=== PATIENT | male | born 2000 | race Caucasian/White ===

== ENCOUNTER 2020-11-03 12:43 | Emergency (ER) | payer OTHER, SELFPAY ==
[2020-11-03 12:55] VITALS: BP 131/87; PULSE 96; RESP 20; TEMP 36.8; O2SAT 97; BMI 20.9
[2020-11-03 13:04] VITALS: BP 131/87; PULSE 96; RESP 20; TEMP 36.8; O2SAT 97
--- NOTE | 2020-11-03 13:20 | HMH.EDUTC ---
[facility] [place] Clinical Impression: Exposure to COVID-19 virus Disposition: Home, Self-Care Condition on Discharge: Good Instructions: DI for COVID-19 (Suspected or Confirmed ), Preventing the Spread of Coronavirus Discharge Instructions Additional Instructions: Drink plenty of fluids. Take tylenol for pain or fever. Return if you begin to have difficulty breathing. Follow up with your regular doctor. GO TO THE ER FOR ANY WORSENING SYMPTOMS Referrals: Yassine Treadwell [Primary Care Provider] - Time of Disposition: 13:21 Medical Decision Making - Medical Records Medical records reviewed: No: I reviewed the patient's medical records. - Kiran Inquiry Pt receiving controlled substance: No Vital Signs: 11/03/20 12:55 11/03/20 13:04 Temperature 98.2 F 98.2 F Temperature Source Oral Pulse Rate 96 H Pulse Rate [Right Brachial] 96 H Respiratory Rate 20 20 Blood Pressure 131/87 Blood Pressure [Right Arm] 131/87 Blood Pressure Mean [Right Arm] 101 Blood Pressure Source [Right Arm] Automatic Cuff Blood Pressure Position [Right Arm] Sitting 02 Sat by Pulse Oximetry 97 Oxygen Delivery Method Room Air Orders (Tests/Meds): ORDERS Category Date Time Status Covid-19 Nasal PCR ([facility]) Routine Lab 11/03/20 13:00 Received [facility] [place] HPI - General Stated complaint: covid exposure, runny nose, cough Time Seen by Provider: 11/03/20 13:20 Mode of Arrival: Ambulatory Source of Information: Patient Limitations: No Limitations Description of Symptoms (Recalled from Triage Doc. by RN): PATIENT REQUESTING COVID TEST D/T EXPOSURE; C/O DECREASED ENERGY, CONGESTION, AND LEFT SHOULDER PAIN HEENT Symptoms (Recalled from RN notes): No Resp Symptoms (Recalled from RN notes): No Skin Symptoms (Recalled from RN notes): No MS Symptoms (Recalled from RN notes): No Functional Status (Recalled from RN notes): WNL - History of Present Illness Provider Complaint: He states that for the past 2 days he has felt fatigued and he has had body aches. Several of the people that he lives with have covid right now. - Related Data Home Medications Medication Instructions Recorded Confirmed No Known Home Medications 08/13/19 08/13/19 Allergies Allergy/AdvReac Type Severity Reaction Status Date / Time No Known Allergies Allergy Unverified 10/14/17 15:06 - Worker's Comp Is this a Worker's Comp case?: No [facility] History - Hepatitis A Screen Drug use history?: No High risk sexual behaviors?: No History of sexually transmitted infection?: No Currently employed?: No Childcare worker?: No Do you have indoor plumbing?: Yes Do you have electricity?: Yes Attestation statement:: This patient has been screened for Hepatitis A risk factors. I have reviewed the patient's past medical history: Yes - Social History Smoking Status: Current every day smoker Tobacco Type: cigarettes # Packs/Day (cigarettes): 1 Alcohol Intake: never Occupational Status: other ROS Obtained: Yes All systems reviewed & no additional complaints - Constitutional Constitutional: Reports system reviewed and no additional complaints, except as docu - Eyes Eyes: Reports system reviewed and no additional complaints, except as docu - ENT Ears, Nose, Mouth, and Throat: Reports system reviewed and no additional complaints, except as docu - Cardiovascular Cardiovascular: Reports system reviewed and no additional complaints, except as docu - Respiratory Respiratory: Reports system reviewed and no additional complaints, except as docu - Gastrointestinal Gastrointestingal: Reports: system reviewed and no additional complaints, except as docu Physical Exam - General General appearance: alert, in no apparent distress - Head Head exam: atraumatic, normocephalic, normal inspection - Eye Eye exam: Present: normal appearance, PERRL, EOMI - ENT ENT exam: Present: normal exam, normal oropharynx, mucous membranes moist, TM's
--- NOTE | 2020-11-03 20:05 | PC.NURSE ---
ATTEMPTED TO CALL PT BUT MOTHER ANSWERED HIS PHONE AND SAID HE WAS NOT AVAILABLE SO I ASKED HER TO LEAVE HIM A MESSAGE TO CALL ME BACK AT HIS EARLIEST CONVENIENCE ABOUT COVID TEST RESULTS
--- NOTE | 2020-11-03 20:15 | PC.NURSE ---
PT CALLED BACK AND RECEIVED POSITIVE COVID RESULT
== END 2020-11-03 13:25 | disposition home or self-care (01) ==
PROVIDERS: Emergency Provider Nurse Practitioner Family; PCP Family Medicine
DX: U07.1 COVID-19 (principal); F17.210 Nicotine dependence, cigarettes, uncomplicated
CPT/HCPCS: 99202; G0463; U0003

== ENCOUNTER 2021-05-31 09:26 | Emergency (ER) | payer OTHER, SELFPAY ==
[2021-05-31 09:30] VITALS: BP 153/91; PULSE 81; RESP 18; TEMP 36.7; O2SAT 97; BMI 20.3
[2021-05-31 10:13] VITALS: BP 153/91; PULSE 81; RESP 18; TEMP 36.7; O2SAT 97
[2021-05-31 10:27] LABS: Microscopic, Urine URINE MICROSCOPIC (MICROSCOPIC)
[2021-05-31 10:29] LABS: Appearance,Urine CLEAR (Clear); Bilirubin,Urine 1+ (Negative); Blood, Urine Negative (Negative); Color,Urine YELLOW (Yellow); Glucose,Urine (UA) Negative (Negative); Ketones,Urine Negative (Negative); Leukocyte Esterase,Urine Negative (Negative); Nitrate,Urine Negative (Negative); Protein,Urine Negative (Negative); Urobilinogen,Urine 0.2 EU/dl (0.2)
[2021-05-31 10:43] LABS: Squamous Epithelial Cell,Urine Occasional #/hpf (0-5)
--- NOTE | 2021-05-31 10:43 | HMH.EDUTC ---
[facility] [place] Disposition Clinical Impression: Folliculitis, History of testicular lump, STD exposure Disposition: Home, Self-Care Condition on Discharge: Good Instructions: DI for Folliculitis Additional Instructions: Apply warm wet compresses to the affected sites three or four times per day for 15 minutes as tolerated. Take the antibiotics as directed. Follow up with your regular doctor. Follow up with urology regarding the lump in your scrotum. I put in a referral to Dr. Marsh. Please call him and schedule an appointment. Don't shave or trim your hair down there until this is well healed. Wait at least 1 to 2 months. GO TO THE ER FOR ANY WORSENING SYMPTOMS OR CONCERNS Prescriptions: Mupirocin [Bactroban 2% Ointment 22gm tube] 1 applicatio TP TID 7 Days #1 tube Transmission Status: Received by [id number] cephALEXin [cephALEXin 500mg capsule] 500 mg PO Q6H 10 Days #40 cap Transmission Status: Received by [id number] Referrals: Yassine Treadwell [Primary Care Provider] - Francisco Marsh MD [Staff Physician] - Time of Disposition: 11:06 Medical Decision Making - Medical Records Medical records reviewed: No: I reviewed the patient's medical records. - Kiran Inquiry Pt receiving controlled substance: No Vital Signs: 05/31/21 09:30 05/31/21 10:13 Temperature 98.0 F 98.0 F Temperature Source Oral Pulse Rate 81 Pulse Rate [Left Brachial] 81 Respiratory Rate 18 18 Blood Pressure 153/91 H Blood Pressure [Left Arm] 153/91 H Blood Pressure Mean [Left Arm] 111 Blood Pressure Source [Left Arm] Automatic Cuff Blood Pressure Position [Left Arm] Sitting 02 Sat by Pulse Oximetry 97 Oxygen Delivery Method Room Air - Lab Data Lab results reviewed: Yes: I reviewed the patient's lab results. Lab Results 05/31/21 09:50: Urine Color Yellow, Urine Appearance Clear, Urine pH 6.0, Ur Specific [place] 1.020, Urine Protein Negative, Urine Glucose (UA) Negative, Urine Ketones Negative, Urine Blood Negative, Urine Nitrate Negative, Urine Bilirubin 1+ A, Urine Urobilinogen 0.2, Ur Leukocyte Esterase Negative, Urine RBC None, Urine WBC 3-5, Ur Squamous Epith Cells Occasional, Urine Bacteria None Orders (Tests/Meds): ORDERS Category Date Time Status Urine Culture Stat Micro 05/31/21 09:50 Received [facility] [place] HPI - General Stated complaint: std check Time Seen by Provider: 05/31/21 10:43 Mode of Arrival: Ambulatory Source of Information: Patient Limitations: No Limitations Description of Symptoms (Recalled from Triage Doc. by RN): PATIENT REQUESTING STD TEST. NO KNOWN EXPOSURE. C/O PIMPLE ON PENIS AND A LUMP TO RIGHT TESTICLE HEENT Symptoms (Recalled from RN notes): No Resp Symptoms (Recalled from RN notes): No Skin Symptoms (Recalled from RN notes): No MS Symptoms (Recalled from RN notes): No Functional Status (Recalled from RN notes): WNL - History of Present Illness Provider Complaint: He has a place near his groin to the right of his penis that he describes as like a pimple that has been present for the past 4 to 5 days. He denies any fever/chills/dysuria. He also states that he has a lump in his scrotum that has been present for several years. He denies any tenderness or pain associated with this. He denies that the lump has changed any. - Related Data Previous Rx's Medication Instructions Recorded Mupirocin [Bactroban 2% Ointment 1 applicatio TP TID 7 Days #1 tube 05/31/21 22gm tube] cephALEXin [cephALEXin 500mg 500 mg PO Q6H 10 Days #40 cap 05/31/21 capsule] Allergies Allergy/AdvReac Type Severity Reaction Status Date / Time No Known Allergies Allergy Verified 05/31/21 10:06 - Worker's Comp Is this a Worker's Comp case?: No [facility] History - Hepatitis A Screen Drug use history?: No High risk sexual behaviors?: No History of sexually transmitted infection?: No Currently employed?: No Childcare worker?: No Do you have indoor pl
[2021-06-03 00:05] LABS: Neisseria gonorrhoeae, NAA Negative (Negative)
== END 2021-05-31 11:10 | disposition home or self-care (01) ==
PROVIDERS: Emergency Provider Nurse Practitioner Family; PCP Family Medicine
DX: L73.9 Follicular disorder, unspecified (principal); Z20.2 Contact with and (suspected) exposure to infections with a predominantly sexual mode of transmission; R22.2 Localized swelling, mass and lump, trunk; F17.210 Nicotine dependence, cigarettes, uncomplicated
CPT/HCPCS: 81001; 87086; 87491; 87591; 99202; G0463

== ENCOUNTER → 2021-08-17 17:38 | Outpatient (CLI) | payer OTHER, SELFPAY | PROVIDERS: Visit Provider Nurse Practitioner Family | DX: Z20.822 Contact with and (suspected) exposure to COVID-19 (principal); J02.9 Acute pharyngitis, unspecified | CPT/HCPCS: C9803; U0003; U0005 ==

== ENCOUNTER → 2021-12-05 15:19 | Outpatient (CLI) | payer MEDICAID, SELFPAY | PROVIDERS: Visit Provider Nurse Practitioner | DX: Z20.822 Contact with and (suspected) exposure to COVID-19 (principal) | CPT/HCPCS: C9803; U0003; U0005 ==

== ENCOUNTER 2022-01-14 15:31 | Emergency (ER) | payer MEDICAID, SELFPAY ==
[2022-01-14 16:14] VITALS: BP 0/0; PULSE 0; RESP 0; TEMP -17.7; TEMP 0; O2SAT 0
== END 2022-01-14 16:15 | disposition left against medical advice (07) ==
PROVIDERS: Emergency Provider Nurse Practitioner Family; PCP Family Medicine
DX: Z53.21 Procedure and treatment not carried out due to patient leaving prior to being seen by health care provider (principal)

== ENCOUNTER 2022-01-15 14:12 | Emergency (ER) | payer MEDICAID, SELFPAY ==
[2022-01-15 15:27] VITALS: BP 120/86; PULSE 86; RESP 18; TEMP 36.5; O2SAT 99; BMI 20.3
--- NOTE | 2022-01-15 15:32 | HMH.EDUTC ---
[facility] [place] Disposition Clinical Impression: Otitis media Qualifiers: Otitis media type: unspecified Laterality: right Qualified Code(s): H66.91 - Otitis media, unspecified, right ear Disposition: Home, Self-Care Condition on Discharge: Good Instructions: Middle Ear Infection, Amoxicillin, Methylprednisolone Additional Instructions: *Monitor Temp, Over the counter Motrin or Tylenol as directed/as needed Tylenol every 4 hours and Motrin every 6 hours (as long as your family doctor has told you that you can take it) for fever or pain. and straight to ER if unable to lower temp less than 101.0 after medication given *Warm salt water gargles may help to soothe the throat *Throat Lozenges *Warm fluids like tea with honey may help to soothe the throat *Sleep elevated *Humidifier/Vaporizer Take medication as prescribed Return if needed Follow up IMMEDIATELY for new or worsening symptoms or no Noticeable improvement over the next 48-72 hours. 911 for difficulty breathing or swallowing You were tested for today for COVID19 your test result should be back in the next 24-48 hours, you may check your results on the [facility] my Health Portal Make sure to take your Vitamins Vit. C Vit D and Zinc if you can take them Prescriptions: Amoxicillin [Amoxicillin 500mg Cap] 500 mg PO TID #30 cap Transmission Status: Pending to [facility] Brompheniramine/Pseudoephed/Dm [Bromfed Dm Cough Syrup] 5 - 10 ml PO Q4-6H PRN #200 ml PRN Reason: Cough Transmission Status: [facility] to [facility] methylPREDNISolone [Medrol 4mg tab] 4 mg PO DIRECTED #21 tab Transmission Status: P[facility] to [facility] Referrals: Yassine Treadwell [Primary Care Provider] - As needed Forms: Work/School Release Time of Disposition: 15:39 Medical Decision Making - Kiran Inquiry Pt receiving controlled substance: No Kiran was queried for this patient: No Vital Signs: 01/15/22 15:27 Temperature 97.7 F Temperature Source Oral Pulse Rate [Left] 86 Respiratory Rate 18 Blood Pressure [Right Arm] 120/86 Blood Pressure Mean [Right Arm] 97 02 Sat by Pulse Oximetry 99 Orders (Tests/Meds): ORDERS Category Date Time Status Covid-19 Nasal PCR ([facility]) Routine Lab 01/15/22 15:26 Received [facility] [place] HPI - General Stated complaint: covid test Time Seen by Provider: 01/15/22 15:33 Mode of Arrival: Ambulatory Source of Information: Patient Limitations: No Limitations Description of Symptoms (Recalled from Triage Doc. by RN): pt c/o chills, cough, body aches, sore throat, fever and congestion and sweats. ongoing x4 days. pt wants a covid test. HEENT Symptoms (Recalled from RN notes): Yes Resp Symptoms (Recalled from RN notes): Yes Skin Symptoms (Recalled from RN notes): No MS Symptoms (Recalled from RN notes): No Functional Status (Recalled from RN notes): wnl - History of Present Illness Provider Complaint: Patient states that he wanted to get a COVID test States that he works at [employer] and they dropped the masks State that he has been having chills, body aches cough, sore throat and ear pain for the last 4 days and he wanted to get a COVID test to be safe - Related Data Previous Rx's Medication Instructions Recorded amoxicillin 500 mg capsule 500 mg PO Q12H 10 Days #20 cap 08/17/21 Amoxicillin [Amoxicillin 500mg 500 mg PO TID #30 cap 01/15/22 Cap] Brompheniramine/Pseudoephed/Dm 5 - 10 ml PO Q4-6H PRN #200 ml 01/15/22 [Bromfed Dm Cough Syrup] methylPREDNISolone [Medrol 4mg 4 mg PO DIRECTED #21 tab 01/15/22 tab] Allergies Allergy/AdvReac Type Severity Reaction Status Date / Time No Known Allergies Allergy Verified 08/31/21 13:46 - Worker's Comp Is this a Worker's Comp case?: No [facility] History - Hepatitis A Screen Drug use history?: No High risk sexual behaviors?: No History of sexually transmitted infection?: No Currently employed?: No Childcare worker?: No Do you have indoor plum
[2022-01-15 16:03] VITALS: BP 120/86; PULSE 86; RESP 18; TEMP 36.5
== END 2022-01-15 16:04 | disposition home or self-care (01) ==
PROVIDERS: Emergency Provider Nurse Practitioner; PCP Family Medicine
DX: H66.91 Otitis media, unspecified, right ear (principal); J02.9 Acute pharyngitis, unspecified; F17.210 Nicotine dependence, cigarettes, uncomplicated
CPT/HCPCS: 99212; C9803; G0463; U0003; U0005

== ENCOUNTER 2022-02-27 02:01 | Emergency (ER) | payer OTHER, SELFPAY ==
[2022-02-27 02:02] VITALS: BP 129/84; PULSE 110; RESP 16; TEMP 37.4; O2SAT 97; BMI 23.0
--- NOTE | 2022-02-27 02:30 | HMH.EDGENADL ---
ED Disposition Clinical Impression: STD exposure Disposition: Home, Self-Care Condition on Discharge: Good Instructions: Facts About Sexually Transmitted Infections, How to Detect and Treat STDs Additional Instructions: You have been evaluated for STD exposure. Please complete doxycycline as prescribed. Follow-up with your primary care doctor. I would recommend an ultrasound of the scrotum and testicles to further evaluate the lump on the right. Return to the emergency department at once for any new or worsening symptoms. Prescriptions: Doxycycline Hyclate 100 mg PO BID #14 cap Transmission Status: Pending to [facility] Referrals: Yassine Treadwell [Primary Care Provider] - Francisco Marsh MD [Staff Physician] - Time of Disposition: :21 - Critical Care Critical Care Time: No Attestation: On 02/27/22, the high probability of a clinically significant, sudden or life threatening deterioration of the following system(s) required my full and direct attention, intervention and personal management. The time I documented below is in addition to time spent performing reported procedures but includes the following listed in this critical care notation. Medical Decision Making - Medical Records Medical records reviewed: Yes: I reviewed the patient's medical records. - Kiran Inquiry Pt receiving controlled substance: No Vital Signs: 02/27/22 02:02 Temperature 99.3 F Temperature Source Oral Pulse Rate [Left] 110 H Respiratory Rate 16 Blood Pressure [Right Arm] 129/84 Blood Pressure Mean [Right Arm] 99 02 Sat by Pulse Oximetry 97 Oxygen Delivery Method Room Air Orders (Tests/Meds): ED MEDICATIONS Generic Name Dose Route Start Last Admin Trade Name Freq PRN Reason Stop Dose Admin Ceftriaxone Sodium 500 mg 02/27/22 03:20 Ceftriaxone 500mg Vial IM 02/27/22 03:21 ONCE ONE Lidocaine HCl 0 ml 02/27/22 03:20 Lidocaine 1% 5ml Pf Vial IM 02/27/22 03:21 ONCE ONE Medical Decision Narrative: In summary this is a previously healthy 21-year-old male presenting to the emergency department after STD exposure. Patient clinically stable on arrival. Tachycardic. Other vital signs within normal limits. Physical exam is quite reassuring. Will obtain urine GC and chlamydia. Patient would like to be treated presumptively for GC and chlamydia exposure. Given 500 mg IM Rocephin in the emergency department. Given prescription for doxycycline. I do have concern for his small, palpable, mobile mass in the right testicle. Recommended follow-up with urology as well as ultrasound. Stressed the importance of follow-up. Given return precautions. Stable for discharge. General Adult HPI - General Stated complaint: Checked for STD Time Seen by Provider: 02/27/22 02:20 Mode of Arrival: Ambulatory Source of Information: Patient Limitations: No Limitations - History of Present Illness HPI narrative: 21-year-old male presenting to the emergency department for STD check. He had sexual relations with a female partner a few weeks ago. He found out later that she may have a sexually transmitted infection. He believes it may be chlamydia. Over the past few months he has noticed a small, firm lump in his right testicle. Nonpainful. Has not seen a doctor about it. He does not have symptoms of rash, lesions, pain, swelling. No penile discharge. No pain with urination or ejaculation. No fevers, chills, joint pain. He is never been tested or treated for sexually transmitted infections before - Related Data Previous Rx's Medication Instructions Recorded amoxicillin 500 mg capsule 500 mg PO Q12H 10 Days #20 cap 08/17/21 Amoxicillin [Amoxicillin 500mg 500 mg PO TID #30 cap 01/15/22 Cap] Brompheniramine/Pseudoephed/Dm 5 - 10 ml PO Q4-6H PRN #200 ml 01/15/22 [Bromfed Dm Cough Syrup] methylPREDNISolone [Medrol 4mg 4 mg PO DIRECTED #21 tab 01/15/22 tab] Doxycycline Hycla
[2022-02-27 03:49] VITALS: BP 126/82; PULSE 98; RESP 16; TEMP 37.2; O2SAT 98
[2022-03-01 22:08] LABS: Neisseria gonorrhoeae, NAA Negative (Negative)
== END 2022-02-27 04:09 | disposition home or self-care (01) ==
PROVIDERS: Emergency Provider Emergency Medicine; PCP Family Medicine
DX: N50.89 Other specified disorders of the male genital organs (principal); R22.9 Localized swelling, mass and lump, unspecified; Z20.2 Contact with and (suspected) exposure to infections with a predominantly sexual mode of transmission
CPT/HCPCS: 87491; 87591; 96372; 99283; J0696

== ENCOUNTER 2022-09-18 21:59 | Emergency (ER) | payer OTHER, SELFPAY ==
[2022-09-18 21:59] VITALS: BP 150/100; PULSE 98; RESP 20; TEMP 36.7; O2SAT 100; BMI 23.0
--- NOTE | 2022-09-18 22:19 | HMH.EDMCLR ---
Discharge Plan Disposition Patient Disposition: Home, Self-Care Chief Complaint: Medical Clearance Prescriptions Prescriptions: No Action amoxicillin 500 mg capsule 500 mg PO Q12H 10 Days Qty: 20 0RF amoxicillin 500 MG capsule 500 mg PO TID Qty: 30 0RF methylprednisolone 4 MG tablet 4 mg PO DIRECTED Qty: 21 0RF Rx Instructions: Take as directed on package instructions [id number] 118 ML syrup 5 - 10 ml PO Q4-6H PRN (Reason: Cough) Qty: 200 0RF doxycycline hyclate 100 MG capsule 100 mg PO BID Qty: 14 0RF Referrals Follow up/Referrals: Yassine Treadwell [Primary Care Provider] - See instructions Clinical Impressions Clinical Impression: Medical clearance for incarceration Discharge ED Provider: Andrew Tafoya Medical Clearance HPI General Chief complaint: Medical Clearance Stated complaint: medical clearance Time Seen by Provider: 09/18/22 22:19 Mode of Arrival: Ambulatory Source of Information: Patient and Law Enforcement Limitations: No Limitations Description of Symptoms (Recalled from ER Triage Doc. by RN): Pt is here with PD for medical clearance. He denies any issues or pain. No significant PMH. History of Present Illness HPI Narrative: pt w/o c/o MD complaint: medical clearance requested Traumatic Symptoms: denies traumatic injury Previous Rx's Medication Instructions Recorded amoxicillin 500 mg capsule 500 mg PO Q12H otitis media 10 08/17/21 days #20 caps amoxicillin 500 mg capsule 500 mg PO TID #30 caps 01/15/22 [id number] 5 - 10 ml PO Q4-6H PRN Cough #200 01/15/22 2 mg-30 mg-10 mg/5 mL oral syrup mL methylprednisolone 4 mg tablet 4 mg PO DIRECTED #21 tabs 01/15/22 doxycycline hyclate 100 mg capsule 100 mg PO BID #14 caps 02/27/22 Allergies Allergy/AdvReac Type Severity Reaction Status Date / Time No Known Allergies Allergy Verified 08/31/21 13:46 PFS PFSH Social History Smoking Status: Current every day smoker tobacco type: cigarettes packs per day: 1 alcohol intake: never substance use type: former substance user and marijuana current occupational status: other Travel in the last 8 weeks: None housing: house ROS Obtained: Yes All systems reviewed & no additional complaints except as documented Physical Exam General General appearance: alert Head Head exam: normocephalic Eye Eye exam: Present PERRL and EOMI ENT ENT exam: Present mucous membranes moist Neck Neck exam: Present trachea midline Respiratory Respiratory exam: Present normal lung sounds bilaterally; Absent respiratory distress Cardiovascular Cardiovascular exam: Present regular rate Abdominal Exam Abdominal exam: Present soft Extremities Exam Extremities exam: Present full ROM Neurological Exam Neurological exam: Present alert, oriented X3 and CN II-XII intact; Absent motor sensory deficit Skin Skin exam: Absent rash Medical Decision Making Medical Records Medical records reviewed: Yes I reviewed the patient's medical records. Kiran Inquiry Pt receiving controlled substance: No Vital Signs: 09/18/22 21:59 Temperature 98.1 F Temperature Source Oral Pulse Rate [Right] 98 H Respiratory Rate 20 Blood Pressure [Right Arm] 150/100 H Blood Pressure Mean [Right Arm] 116 Blood Pressure Source [Right Arm] Automatic Cuff 02 Sat by Pulse Oximetry 100 Oxygen Delivery Method Room Air Lab Data Lab results reviewed: Yes I reviewed the patient's lab results. Medical Decision Narrative: stable exam Critical Care Time Critical Care Time Critical Care Time: No Attestation: On 09/18/22, the high probability of a clinically significant, sudden or life threatening deterioration of the following system(s) required my full and direct attention, intervention and personal management. The time I documented below is in addition to time spent performing reported procedures but includes the following listed in this cri
[2022-09-18 22:27] VITALS: BP 150/105; PULSE 130; RESP 18; TEMP 36.7; O2SAT 99
== END 2022-09-18 22:32 | disposition home or self-care (01) ==
PROVIDERS: Emergency Provider Emergency Medicine; PCP Family Medicine
DX: Z02.89 Encounter for other administrative examinations (principal)
CPT/HCPCS: 99282

== ENCOUNTER → 2022-12-30 11:37 | Outpatient (CLI) | payer OTHER, SELFPAY ==
[2022-12-30 12:54] LABS: Barbiturates Screen,Urine Negative ng/ml (<200)
[2022-12-30 12:55] LABS: Amphetamine/Metha Screen,Urine Negative ng/ml (<1000); Benzodiazepines Screen,Urine Negative ng/ml (<200)
[2022-12-30 12:56] LABS: Cannabinoid Screen,Urine Positive ng/ml (<50)
[2022-12-30 12:57] LABS: Cocaine Screen,Urine Negative ng/ml (<300); Methadone Screen,Urine Negative ng/ml (<300)
[2022-12-30 12:58] LABS: Phencyclidine Screen,Urine Negative ng/ml (<25)
[2022-12-30 12:59] LABS: Opiate Screen,Urine Negative ng/ml (<300)
== END ==
PROVIDERS: PCP Physician Assistant; Visit Provider Student in an Organized Health Care Education/Training Program
DX: R51.9 Headache, unspecified (principal); Z13.89 Encounter for screening for other disorder
CPT/HCPCS: 80305

== ENCOUNTER → 2023-01-17 14:31 | Outpatient (CLI) | payer OTHER, SELFPAY ==
--- NOTE | 2023-01-17 14:36 | XR_ITS ---
FINAL REPORT CLINICAL HISTORY: L foot/ankle pain FINDINGS: LEFT ANKLE Three views demonstrate no acute fracture or dislocation. Sideplate and screws seen in the distal tibia. A long screw is seen in the distal fibular diaphysis. There are mild hypertrophic changes of the mortise. No other fracture is identified. IMPRESSION: Postoperative changes without acute bony abnormality. Reviewed, Interpreted and Dictated by Ariel Vang MD Transcribed by Mally Correa Authenticated and [facility]
--- NOTE | 2023-01-17 14:36 | XR_ITS ---
FINAL REPORT CLINICAL HISTORY: L foot/ankle pain FINDINGS: LEFT FOOT Three views of the left foot demonstrate no acute fracture or dislocation. Sideplate and screw is seen of a healed fracture deformity in the distal tibia. Long orthopedic screw is seen in the distal fibula. There are moderate hypertrophic changes of the 1st MTP joint. IMPRESSION: Healing fractures as above. Reviewed, Interpreted and Dictated by Ariel Vang MD Transcribed by Mally Correa Authenticated and [facility]
== END ==
PROVIDERS: PCP Physician Assistant; Visit Provider Student in an Organized Health Care Education/Training Program
DX: M25.572 Pain in left ankle and joints of left foot (principal); M79.672 Pain in left foot
CPT/HCPCS: 73610; 73630

== ENCOUNTER → 2023-01-24 14:34 | Outpatient (CLI) | payer OTHER, SELFPAY ==
--- NOTE | 2023-01-24 14:42 | CT_ITS ---
FINAL REPORT TECHNIQUE: Thin section axial images were obtained from skull base to vertex without contrast. Coronal reconstruction images were obtained from the axial data. Exam was performed using dose reduction technique. CLINICAL HISTORY: headaches, h/o trauma FINDINGS: There is no mass effect or midline shift. There is no hydrocephalus. There is no intracranial hemorrhage. The posterior fossa is without acute abnormality. The basilar cisterns are preserved. The soft tissues are without acute abnormality. No acute osseous abnormality is identified. IMPRESSION: No acute intracranial abnormality. Reviewed, Interpreted and Dictated by Carol Nguyen MD Transcribed by Ny Springer Authenticated and . [facility]
== END ==
PROVIDERS: PCP Physician Assistant; Visit Provider Student in an Organized Health Care Education/Training Program
DX: R51.9 Headache, unspecified (principal)
CPT/HCPCS: 70450

== ENCOUNTER 2023-03-01 13:44 | Emergency (ER) | payer OTHER, SELFPAY ==
[2023-03-01 13:58] VITALS: BP 141/88; PULSE 86; RESP 19; TEMP 36.8; O2SAT 98; BMI 22.8
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
[2023-03-01 14:46] VITALS: BP 141/88; PULSE 86; RESP 19; TEMP 36.8
== END 2023-03-01 14:50 | disposition home or self-care (01) ==
PROVIDERS: Emergency Provider Nurse Practitioner Family; PCP Physician Assistant
DX: K04.7 Periapical abscess without sinus (principal); F17.210 Nicotine dependence, cigarettes, uncomplicated
CPT/HCPCS: 99212; 99214; G0463

== ENCOUNTER 2023-05-08 17:20 | Emergency (ER) | payer OTHER, SELFPAY ==
[2023-05-08 17:30] VITALS: BP 142/89; PULSE 86; RESP 20; TEMP 36.8; O2SAT 98; BMI 26.0
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
[2023-05-08 17:49] LABS: UTC Strep Screen (Rapid) Negative (Negative)
[2023-05-08 17:50] VITALS: BP 142/89; PULSE 86; RESP 20; TEMP 36.8; O2SAT 98
== END 2023-05-08 17:55 | disposition home or self-care (01) ==
PROVIDERS: Emergency Provider Nurse Practitioner; PCP Physician Assistant
DX: J02.9 Acute pharyngitis, unspecified (principal); R51.9 Headache, unspecified; F17.210 Nicotine dependence, cigarettes, uncomplicated
CPT/HCPCS: 87880; 99212; 99214; G0463